=== PATIENT | male | born 1955 | race Caucasian/White ===

== ENCOUNTER 2018-06-19 07:41 | Outpatient (CLI) | payer BC ==
--- NOTE | 2018-06-19 08:54 | MRI ---
MRI LEFT SHOULDER WITHOUT CONTRAST: HISTORY: M75.42. Patient with syndrome of left shoulder. COMPARISON: None. FINDINGS: BICEPS TENDON: Low grade extraarticular biceps tenosynovial fluid. Mild interstitial tendinosis. N o subluxation. LABRUM: There is an anterior-inferior labral tear. ROTATOR CUFF: There is moderate tendinosis and interstitial delamination of the craniad fibers of th e subscapularis. There is mild tendinosis of the supraspinatus tendon. There is approximately 50% b ursal surface partial tear of the anterior 1 cm supraspinatus tendon. BONES: Mild downsloping of the acromion with narrowing subacromial space to approximately 4 mm. 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 No acute fracture. MUSCLES: Muscle signal and bulk are normal. SOFT TISSUES: Low grade subacromial/subdeltoid bursal effusion. IMPRESSION: 1. Approximately 75% thickness bursal surface tearing of the anterior 1 cm fibers of the supraspinat us tendon from the footplate. 2. Narrowed subacromial space due to lateral downsloping of the acromion with the subacromial space measuring approximately 4 mm with subacromial/subdeltoid bursal effusion. 3. Anterior labral tear. POS: [facility]
== END 2018-06-19 07:42 | disposition home or self-care (01) ==
LOC: TBSIIMAG 07:41
PROVIDERS: ATTEND Orthopaedic Surgery
DX: M75.42 Impingement syndrome of left shoulder (principal); M75.112 Incomplete rotator cuff tear or rupture of left shoulder, not specified as traumatic; S43.492A Other sprain of left shoulder joint, initial encounter; M25.412 Effusion, left shoulder

== ENCOUNTER 2023-07-05 14:18 | Observation (INO) | payer MEDICARE, BC ==
[~2023-07-05 14:18] MED LIST: Iopamidol-370 76% 500 ML MDV (1 ML CHARGE) ONE
[2023-07-05 14:52] LABS: #Monocytes 0.7 thou/uL (0.11-0.59); #Neutrophils 15.4 thou/uL (1.40-6.50); %Basophils 0.1 % (0.0-1.0); %Lymphocytes 6.6 % (21.0-51.0); %Neutrophils 88.8 % (42.0-75.0); Hematocrit 42.5 % (42.0-52.0); Hemoglobin 14.4 g/dL (14.0-18.0); Mean Corpuscular HGB CONC 33.9 g/dL (32.0-36.0); Mean Corpuscular Hemoglobin 31.4 pg (27.0-31.0); Mean Corpuscular Volume 92.6 fl (78.0-98.0); Mean Platelet Volume 10.6 fL (7.4-10.4); Platelet Count 236 10x3/uL (130-400); RBC Distribution Width 12.5 % (11.5-14.5); Red Blood Cell (RBC) Count 4.59 mill/uL (4.70-6.10); White Blood Cell (WBC) Count 17.3 10x3/uL (4.8-10.8)
[2023-07-05] MEDS ORDERED: Aspirin Chewable 81 MG TAB ONE (15:27)
[2023-07-05 16:07] LABS: Troponin I Less than 0.010 ng/mL (< 0.028)
[2023-07-05 16:26] LABS: ALT (SGPT) 21 U/L (8-55); AST (SGOT) 20 U/L (5-34); Albumin 4.9 g/dL (3.4-4.8); Alkaline Phosphatase 71 U/L (40-110); Anion Gap 16 mmol/L (10-20); BUN (Urea Nitrogen) 28 mg/dL (8.4-25.7); Bilirubin, Total 0.4 mg/dL (0.2-1.2); Calc. Creatinine Clearance 0 mL/min (70-130); Calcium 10.3 mg/dL (7.8-10.44); Carbon Dioxide 19 mmol/L (23-31); Chloride 105 mmol/L (98-107); Estimated GFR 43; Globulin 3.4 g/dL (2.4-3.5); Glucose 215 mg/dL (80-115); Lipase 12 U/L (8-78); Potassium 4.4 mmol/L (3.5-5.1); Protein, Total 8.3 g/dL (5.8-8.1); Sodium 136 mmol/L (136-145)
[2023-07-05 19:10] LABS: Troponin I Less than 0.010 ng/mL (< 0.028)
[2023-07-05 19:18] VITALS: BMI 27.8
[2023-07-05] MEDS ORDERED: Atorvastatin Calcium 10 MG TAB PO SCH (21:00)
[2023-07-05 21:49] LABS: Phosphorus 3.3 mg/dL (2.3-4.7)
[2023-07-05 21:53] LABS: Troponin I Less than 0.010 ng/mL (< 0.028)
[2023-07-05 22:14] LABS: Creatinine, Urine 76.01 mg/dL (63-166)
[2023-07-06 04:44] LABS: #Neutrophils 10.4 thou/uL (1.40-6.50); %Basophils 0.2 % (0.0-1.0); %Lymphocytes 11.3 % (21.0-51.0); %Monocytes 7.6 % (0.0-10.0); %Neutrophils 80.4 % (42.0-75.0); Hematocrit 36.5 % (42.0-52.0); Hemoglobin 12.5 g/dL (14.0-18.0); Mean Corpuscular HGB CONC 34.2 g/dL (32.0-36.0); Mean Corpuscular Hemoglobin 31.8 pg (27.0-31.0); Mean Corpuscular Volume 92.9 fl (78.0-98.0); Mean Platelet Volume 10.6 fL (7.4-10.4); Platelet Count 201 10x3/uL (130-400); RBC Distribution Width 12.7 % (11.5-14.5); Red Blood Cell (RBC) Count 3.93 mill/uL (4.70-6.10)
[2023-07-06 06:15] LABS: ALT (SGPT) 15 U/L (8-55); AST (SGOT) 19 U/L (5-34); Albumin 3.7 g/dL (3.4-4.8); Alkaline Phosphatase 53 U/L (40-110); Anion Gap 10 mmol/L (10-20); BUN (Urea Nitrogen) 22 mg/dL (8.4-25.7); Bilirubin, Total 0.3 mg/dL (0.2-1.2); Calc. Creatinine Clearance 68 mL/min (70-130); Calcium 8.6 mg/dL (7.8-10.44); Carbon Dioxide 23 mmol/L (23-31); Chloride 107 mmol/L (98-107); Estimated GFR 60; Glucose 135 mg/dL (80-115); Potassium 4.2 mmol/L (3.5-5.1); Protein, Total 6.7 g/dL (5.8-8.1); Sodium 136 mmol/L (136-145)
[2023-07-06] MEDS ORDERED: Loratadine 10 MG TAB PO SCH (09:00)
[2023-07-06] MEDS ORDERED: Amlodipine 5 MG TAB PO SCH (09:00)
[2023-07-06] MEDS ORDERED: Multivit, Therapeutic 1 TAB PO SCH (09:00)
[2023-07-06] MEDS ORDERED: Acetaminophen 325 MG TAB PO PRN (12:20)
[2023-07-06 13:18] LABS: Free T4 (Free Thyroxine) 0.87 ng/dL (0.70-1.48); Thyroid Stimulating Hormone 3.3507 uIU/mL (0.35-4.94)
[2023-07-06 16:52] VITALS: BP 136/67; TEMP 98.3
== END 2023-07-06 17:40 | disposition home or self-care (01) ==
LOC: ERS 14:18 → 2SW 17:38
PROVIDERS: ADMIT Internal Medicine; ATTEND Internal Medicine Critical Care Medicine
DX: I48.0 Paroxysmal atrial fibrillation (principal); I49.1 Atrial premature depolarization; I08.1 Rheumatic disorders of both mitral and tricuspid valves; E78.5 Hyperlipidemia, unspecified; I10 Essential (primary) hypertension; C64.9 Malignant neoplasm of unspecified kidney, except renal pelvis; R53.83 Other fatigue; M19.90 Unspecified osteoarthritis, unspecified site; F17.220 Nicotine dependence, chewing tobacco, uncomplicated; Z96.651 Presence of right artificial knee joint; Z79.899 Other long term (current) drug therapy
CPT/HCPCS: 36415; 71045; 71275; 76770; 80053; 82570; 83690; 83735; 84100; 84145; 84300; 84439; 84443; 84484; 85025; 93005; 93306; G0378; Q9967